=== PATIENT | female | born 1945 | race Caucasian/White ===

== ENCOUNTER → 2016-08-09 | Outpatient (CLI) | payer MEDICARE ==
[~2016-08-09] MED LIST: ACETAMINOPHEN PO; AMARYL2 MG PO; ASPIR-TRIN325 MG PO; ASPIRIN325 M1 PO; ASPIRIN81 M1 PO; BACTRIM DS TABL1 TA1 PO; CALCIUM + D 6001 TA1 PO; CALTRATE 600+D; CALTRATE 600+D PO; CENTRUM SILVER PO; CENTRUM SILVER1 EAC2; CENTRUM SILVER1 EAC2 PO; CLOPIDOGREL75 MG PO; COATED ASPIRIN325 M1 PO; COREG3.125 MG; COREG3.125 MG PO; ECOTRIN325 MG; EFFIENT10 MG PO; GLIPIZIDE10 MG PO; HYDRALAZINE HCL25 MG PO; KEFLEX500 MG PO; LANTUS SOLOSTAR3 ML; LANTUS SOLOSTAR3 ML SQ; LANTUS SOLOSTAR3 ML SUBQ; LASIX20 MG PO; LEVAQUIN250 MG PO; LIPITOR; LIPITOR40 MG PO; LISINOPRIL PO; LISINOPRIL20 MG PO; LORTAB 5/500 TA1 TA1 PO; LOTRISONE CREAM45 GM TOP; METFORMIN HCL500 M2 PO; NITROGLYGERIN0.4 MG SL; NITROSTAT0.4 MG SL; ONE DAILY1 TA3 PO; PRAVASTATIN SOD20 MG PO; PRAVASTATIN SOD40 MG PO; PRINIVIL20 M1; SANTYL15 G1 TP; SENNA S TABLET1 TAB PO; VICODIN 5/500 T1 TAB PO; ZYVOX600 MG PO
[2016-08-09 11:27] LABS: CHOLESTEROL 126 mg/dL (0-200); GLUCOSE FASTING 232 mg/dL (70-110); HDL CHOLESTEROL 34 mg/dL (35-95); LDL CHOLESTEROL 61 mg/dL (-130); LDL/HDL RATIO 2 RATIO (0-4); TRIGLYCERIDES 154 mg/dL (10-160)
== END | disposition home or self-care (01) ==
LOC: CLAB 10:11
DX: Z48.812 Encounter for surgical aftercare following surgery on the circulatory system (principal); Z98.61 Coronary angioplasty status
CPT/HCPCS: 36415; 80061; 82947; 83036; 86140

== ENCOUNTER 2016-09-13 14:20 | Emergency (ER) | payer MEDICARE ==
--- NOTE | ~2016-09-13 | CR211 ---
[facility] A Service of [facility] RADIOLOGY TEXT RESULTS PATIENT: ERROL BILLINGS LOCATION: [facility] : 45 UNIT #: [id number] AGE: [address]: Mario Gomez MD SEX: F ORDER DR: [id number] [facility] [address] [place], [place] [address] [id number] E MR#: [id number] Acc #: [id number] NAME: ERROL BILLINGS. : 1945 SEX: F STUDY DATE/TIME: 09/13/2016 13:03 UNIT: MIC[facility]AL ROOM: STUDY DESCRIPTION: CR Ribs Uni 2 View W PA Ch Rt Attending Physician: Mario Gomez M.D. Ordering Physician: Mario Gomez M.D. Primary Care Physician: Frederick Hare M.D. MEDICAL IMAGING REPORT This report is preliminary unless electronic signature is present EXAM Right rib series with chest, 09/13/2016, 1303 hours. CLINICAL HISTORY Patient fell on 09/09/2016 with complaint of right anterior chest wall pain, rib pain, and sternal pain. COMPARISON Chest film, 04/11/2016. FINDINGS Upright chest film demonstrates low lung volumes with cardiomegaly and tortuous aorta. There is no pleural effusion or pneumothorax. AP and oblique views of the right ribs are somewhat limited by large body habitus. No definite rib fracture is seen. IMPRESSION 1. No definite rib fracture, pleural effusion or pneumothorax. 2. Low lung volumes with perihilar and basilar vascular crowding. Dictated by... Leatha Aponte M.D. THIS IS AN ELECTRONICALLY VERIFIED REPORT Leatha Aponte M.D. at 09/14/2016 10:40 AM KATIE/staci TD: 09/13/2016 15:12 JOB #: [id number] [facility] A Service of [facility] RADIOLOGY TEXT RESULTS PATIENT: ERROL BILLINGS [id number] [birth year] UNIT #: [id number] AGE: [address]: Mario Gomez MD SEX: F ORDER DR: MEDICAL IMAGING REPORT Page 1 of 1 COPY
--- NOTE | ~2016-09-13 | CR239 ---
[facility] A Service of [facility] RADIOLOGY TEXT RESULTS PATIENT: ERROL BILLINGS LOCATION: [facility] : 45 UNIT #: [id number] AGE: [address]: Mario Gomez MD SEX: F ORDER DR: [id number] [facility] [address] [place], [place] [address] [id number] P MR#: [id number] Acc #: [id number] NAME: ERROL BILLINGS : 1945 SEX: F STUDY DATE/TIME: 09/13/2016 UNIT: [facility] ROOM: STUDY DESCRIPTION: CR Sternum Min 2 Views Attending Physician: Mario Gomez M.D. Ordering Physician: Mario Gomez M.D. Primary Care Physician: Frederick Hare M.D. MEDICAL IMAGING REPORT This report is preliminary unless electronic signature is present EXAM Sternum 2 views HISTORY Patient fel on 09/09/16. anterior chest pain since fall. FINDINGS Lateral and oblique views demonstrate no definite sternal fracture. 1 of the views raises question of an acute anterior right sixth rib fracture and bowing or angulation at the anterior seventh rib which could represent fractures. These anterior abnormalities are not well seen on the rib series, likely due to differences in obliquity. IMPRESSION 1. Negative sternum. No fracture seen. 2. Steep oblique view suggests an anterior acute right sixth rib fracture and probable adjacent 7th rib fracture seen on this steep oblique view not seen on the rib series obtained today. STAT * RESULT Dictated by... Leatha Aponte M.D. THIS IS AN ELECTRONICALLY VERIFIED REPORT Leatha Aponte M.D. at 09/13/2016 2:30 PM KATIE/la TD: 09/13/2016 13:56 [facility] A Service of [facility] RADIOLOGY TEXT RESULTS PATIENT: ERROL BILLINGS [id number] [birth year] UNIT #: [id number] AGE: [address]: Mario Gomez MD SEX: F ORDER DR: JOB #: [id number] MEDICAL IMAGING REPORT Page 1 of 1 COPY
--- NOTE | ~2016-09-13 | CR127 ---
[facility] A Service of [facility] RADIOLOGY TEXT RESULTS PATIENT: ERROL BILLINGS LOCATION: [facility] : 45 UNIT #: [id number] AGE: [address]: Mario Gomez MD SEX: F ORDER DR: [id number] [facility] [address] [place], [place] [address] [id number] P MR#: [id number] Acc #: [id number] NAME: ERROL BILLINGS : 1945 SEX: F STUDY DATE/TIME: 09/13/2016 UNIT: [facility] ROOM: STUDY DESCRIPTION: CR Foot Complete Min 3 View Rt Attending Physician: Mario Gomez M.D. Ordering Physician: Mario Gomez M.D. Primary Care Physician: Frederick Hare M.D. MEDICAL IMAGING REPORT This report is preliminary unless electronic signature is present EXAM Right foot, 3 views 09/13/16 13:01 hours HISTORY 70-year-old woman who fell on 09/09/16. Patient complains of foot pain in the great toe with bruising since fall. COMPARISON: None FINDINGS AP, lateral and oblique views demonstrate an acute corner fracture through the proximal aspect of the distal phalanx of the great toe extending into the interphalangeal joint. The proximal phalanx is intact. No other foot fracture seen. IMPRESSION 1. There is an oblique corner fracture of the proximal aspect of the distal phalanx of the great toe extending into the interphalangeal joint. This is acute. 2. The foot is otherwise negative. Dictated by... Leatha Aponte M.D. THIS IS AN ELECTRONICALLY VERIFIED REPORT Leatha Aponte M.D. at 09/13/2016 2:28 PM SMM/veronique TD: 09/13/2016 13:37 [facility] A Service [facility] RADIOLOGY TEXT RESULTS PATIENT: ERROL BILLINGS LOCATION: [facility] : 45 UNIT #: [id number] AGE: [address]: Mario Gomez MD SEX: F ORDER DR: JOB #: [id number] MEDICAL IMAGING REPORT Page 1 of 1 COPY
== END 2016-09-13 14:48 | disposition home or self-care (01) ==
LOC: CED 14:20
DX: S92.411A Displaced fracture of proximal phalanx of right great toe, initial encounter for closed fracture (principal); S22.31XA Fracture of one rib, right side, initial encounter for closed fracture; I10 Essential (primary) hypertension; Z88.0 Allergy status to penicillin; Z91.012 Allergy to eggs; Z91.018 Allergy to other foods; W01.0XXA Fall on same level from slipping, tripping and stumbling without subsequent striking against object, initial encounter; Y92.009 Unspecified place in unspecified non-institutional (private) residence as the place of occurrence of the external cause
CPT/HCPCS: 29405; 71101; 71120; 73630; 99284

== ENCOUNTER → 2016-11-18 | Outpatient (CLI) | payer MEDICARE ==
--- NOTE | ~2016-11-18 | MY29 ---
[facility] A Service of [facility] RADIOLOGY TEXT RESULTS PATIENT: ERROL BILLINGS LOCATION: [facility] : 45 UNIT #: [id number] AGE: [address]: LUCY HARE MD SEX: F ORDER DR: [id number] [facility] [address] [place], [place] [address] [id number] O MR#: [id number] Acc #: [id number] NAME: ERROL BILLINGS : 1945 SEX: F STUDY DATE/TIME: 11/18/2016 12:55 UNIT: [facility] ROOM: STUDY DESCRIPTION: MY [place] SCREENING W/ CAD BILAT Attending Physician: Lucy Hare M.D. Ordering Physician: Lucy Hare M.D. Primary Care Physician: Lucy Hare M.D. MEDICAL IMAGING REPORT This report is preliminary unless electronic signature is present EXAM Bilateral digital screening mammogram with CAD DATE 11/18/2016 HISTORY 71-year-old female with no personal or family history of breast cancer or current complaints. COMPARISON Bilateral screening mammogram 10/15/2015, 11/23/2013. FINDINGS CC and MLO views were obtained of each breast utilizing digital technique and reviewed with an FDA-approved CAD device. Scattered fibroglandular densities are present bilaterally. There is a slight fibronodular pattern within each breast. The parenchymal pattern appears stable. No new or developing nodule is identified. Benign-appearing lymph node within the posterior upper outer left breast, unchanged. Fibronodular density in the medial hemisphere left breast CC view appears stable since 11/23/2013. IMPRESSION BIRADS 2. Benign findings. Routine bilateral screening mammogram is recommended in 1 year. Patients over the age of 40 are entered into a reminder system with target due date for the next mammogram. A result letter will also be sent to the patient. BIRADS: 2, benign findings. [facility] A Service of [facility] RADIOLOGY TEXT RESULTS PATIENT: ERROL BILLINGS LOCATION: [facility] : 45 UNIT #: [id number] AGE: [address]: LUCY HARE MD SEX: F ORDER DR: Dictated by... Bernie Whtiten M.D. THIS IS AN ELECTRONICALLY VERIFIED REPORT Bernie Whitten M.D. at 11/19/2016 6:13 AM LALI/myles TD: 11/18/2016 15:01 JOB #: [id number] MEDICAL IMAGING REPORT Page 1 of 1 COPY
== END | disposition home or self-care (01) ==
LOC: CWCC 12:36
DX: Z12.31 Encounter for screening mammogram for malignant neoplasm of breast (principal)
CPT/HCPCS: G0202